=== PATIENT | female | born 1960 | race Caucasian/White ===

== ENCOUNTER 2019-10-14 09:16 | Outpatient (CLI) | payer OTHER, SELFPAY ==
--- NOTE | 2019-10-14 10:02 | ECG_ITS ---
Measurements Intervals [place] Rate: 62 P: 70 WY: 179 QRS: 77 QRSD: 92 T: 64 QT: 404 QTc: 413 Interpretive Statements SINUS RHYTHM BASELINE ARTIFACT- II, III, AVL, AVF NORMAL ECG Electronically Signed On 10-14-2019 10:38:04 CDT by Sumit Hurley D.O.
[2019-10-14 10:37] LABS: INR 0.9; Partial Thromboplastin Time 28.6 SECONDS (22.3-36.8); Prothrombin Time 11.7 Seconds (11.1-14.7)
[2019-10-14 10:41] LABS: Alanine Aminotransferase 14 U/L (4-35); Albumin Level 4.1 g/dL (3.5-5.1); Alkaline Phosphatase 95 U/L (38-126); Anion Gap 11.2 mmol/L (7-16); Aspartate Amino Transferase 24 U/L (14-36); Bilirubin,Total 0.2 mg/dL (0.2-1.3); Blood Urea Nitrogen 9 mg/dL (7-17); Calcium 8.9 mg/dL (8.4-10.2); Carbon Dioxide 29 mmol/L (22-30); Chloride 103 mmol/L (98-107); Estimated Glomerular Filt Rate > 60; Glucose 99 mg/dL (65-105); Potassium 4.2 mmol/L (3.4-5.0); Sodium 139 mmol/L (137-145)
[2019-10-14 11:05] LABS: Basophils Absolute Auto 0.1 K/mm3 (0.0-0.1); Basophils Percent Auto 1.2 % (0.2-1.2); Eosinophils Absolute Auto 0.4 K/mm3 (0-0.3); Eosinophils Percent Auto 5.8 % (0-4.4); Hematocrit 39.8 % (37.0-47.0); Immature Granulocyte Absolute 0.02 K/mm3 (0.00-0.031); Immature Granulocyte Percent A 0.3 % (0-0.5); Mean Corpuscular HGB Conc 32.7 g/dl (32-36); Mean Corpuscular Hemoglobin 30.8 pg (26-34); Mean Corpuscular Volume 94.3 fl (80-100); Mean Platelet Volume 9.6 fl (7.4-10.4); Monocytes Absolute Auto 0.6 K/mm3 (0.1-0.6); Monocytes Percent Auto 7.5 % (2.6-8.5); Neutrophils Absolute Auto 3.6 K/mm3 (1.3-6.7); Neutrophils Percent Auto 48.2 % (45.5-73.1); Platelet Count Result 317 k/mm3 (150-375); Red Blood Count 4.22 M/mm3 (4.2-5.4); Red Cell Distribution Width 13.6 % (11.5-14.5); White Blood Count 7.6 K/mm3 (4.5-10.0)
== END 2019-10-14 09:17 | disposition home or self-care (01) ==
LOC: ANHSURGERY 09:20
PROVIDERS: PCP Family Medicine Sports Medicine; Visit Provider Urology
DX: N81.9 Female genital prolapse, unspecified (principal); E78.00 Pure hypercholesterolemia, unspecified
CPT/HCPCS: 36415; 80053; 85025; 85610; 85730; 86850; 86900; 86901; 87086; 87088; 93005

== ENCOUNTER 2019-10-21 00:21 | Outpatient (CLI) | payer OTHER, SELFPAY ==
[2019-10-21 20:43] LABS: SARS-CoV-2 RNA PCR Negative
== END 2019-10-21 00:22 | disposition home or self-care (01) ==
LOC: ANHCOVIDDT 00:21
PROVIDERS: PCP Family Medicine Sports Medicine; Visit Provider Urology
DX: Z01.818 Encounter for other preprocedural examination (principal); Z11.59 Encounter for screening for other viral diseases
CPT/HCPCS: 87635; C9803; U0003

== ENCOUNTER 2019-10-24 00:58 | Day surgery (SDC) | payer OTHER, SELFPAY ==
[2019-10-14 09:38] VITALS: BP 116/66; PULSE 68; RESP 20; TEMP 36.9; O2SAT 96; BMI 30.2
[2019-10-24] VITALS (12 sets, daily range): BP systolic 98–139; BP diastolic 47–81; PULSE 59–100; RESP 12–20; TEMP 36.1–37; O2SAT 94–100
--- NOTE | 2019-10-24 07:29 | WPDHPUPDATE1 ---
History and Physical Update Update Date/Time: 10/24/19 07:29 History and Physical has been reviewed, including an updated exam of the patient. There are NO changes in the patient's condition. Risks, benefits, and alternatives have been discussed and questions answered. Patient agrees to proceed with procedure.
[2019-10-24] MEDS: LACTATED RINGERS 1,000 ML 30 ML IV CONT ×2 (08:55→13:06)
--- NOTE | 2019-10-24 09:41 | WPDANESEPPF ---
Anes - Initial Pre Proc Eval Procedure: Operation Date: 10/24/19 10:00 Proposed Procedures p Robotic Sacrocolpopexy - Gurpreet Masterson MD Date/Time: 10/24/19 09:41 Surgeon: Gurpreet Masterson MD Pre Op Diagnosis: Vaginal Vault Prolapse Patient Data Age: 59 Gender: F Height: 5 ft 5 in Weight: 82.5 kg Last Vital Signs Temp 36.9 C 10/14/19 09:38 Pulse 68 10/14/19 09:38 Resp 20 10/14/19 09:38 BP 116/66 10/14/19 09:38 Pulse Ox 96 10/14/19 09:38 Allergies Allergy/AdvReac Type Severity Reaction Status Date / Time morphine Allergy Unknown ITCHING Verified 10/14/19 09:30 Home Medications Medication Instructions Recorded Confirmed Type atorvastatin 10 mg PO DAILY 10/14/19 10/24/19 History calcium carbonate [Calcium 600] 600 mg PO TID 10/14/19 10/24/19 History cholecalciferol (vitamin D3) 50 mcg PO DAILY 10/14/19 10/24/19 History levothyroxine 137 mcg PO DAILY 10/14/19 10/24/19 History magnesium 250 mg PO DAILY 10/14/19 10/24/19 History oxybutynin chloride 10 mg PO BID 10/14/19 10/24/19 History turmeric root extract 500 mg PO DAILY 10/14/19 10/24/19 History venlafaxine 150 mg PO DAILY 10/14/19 10/24/19 History Patient hx anesthesia problems: none Family hx anesthesia problems: none PMFSH Past Medical History Medical History (Updated 10/24/19 @ 09:41 by James Jeffries MD) Hyperlipidemia Hypothyroidism Obesity Surgical History Surgical History (Updated 10/24/19 @ 09:41 by James Jeffries MD) H/O: hysterectomy Social History Social History Smoking status: Current every day smoker Tobacco type: cigarettes Second hand tobacco smoke exposure: Yes Additional smoking assessment comments: 1PK/DAY/40+YRS Alcohol intake: current Substance use: never Living arrangements: with family Spiritual care concerns: No Anes - Eval Final PreProcedure Day of Procedure 10/24/19 09:41 Patient weight: obese Heart: regular rate and rhythm Lungs: clear to auscultation Airway: Mallampati scale class II Neurological: alert and oriented Last oral intake: >/= 8 hours ASA classification: III Emergent: no Anesthetic plan: proceed Anesthesia type and monitoring: general ETT and standard monitoring Informed Consent: The patient's anesthetic plan and its attendant risks and benefits were discussed with the patient/family/POA. Questions were solicited and answers provided to the satisfaction of the patient/family/POA.
[2019-10-24] MEDS: ceFAZolin 2 GM/D5W 50 ML 2 GM/50 ML BAG IVPB (10:37)
[2019-10-24] MEDS: BUPIVACAINE/EPINEPHRINE 0.25% 50 ML VIAL 20 ML INFILTRATE (11:10)
--- NOTE | 2019-10-24 13:07 | PM.PROC ---
Procedure Note - Detailed Date of procedure: 10/24/19 Pre-op diagnosis: Vaginal Vault Prolapse Post hysterectomy vaginal vault prolapse Stress urinary incontinence Post-op diagnosis: same Procedure performed: Robotic assisted laparoscopic sacral colpopexy [place] urethral sling Description of procedure: She understands the risks of bleeding, infection, recurrence of prolapse, diskitis, postoperative voiding dysfunction including incontinence and retention, dyspareunia, persistent or recurrent stress incontinence, vaginal mesh extrusion, urinary tract mesh erosion, bowel injury or obstruction, damage to surrounding organs, medical related complications. Agrees to proceed She was correctly identified and informed consent was obtained. She is brought to the operating room. She was given general anesthesia. She was placed in the low lithotomy position. All pressure points were padded. She was given appropriate perioperative antibiotics. A time-out was performed. I anesthetized the skin 3 fingerbreadths cephalad to the umbilicus. I incised the skin. I located the fascia. I entered the fascia sharply. I placed Vicryl sutures for later fascial closure. I placed a midline trocar. Under direct vision 2 additional trocars were placed in the right and left upper quadrant. She was placed in steep Trendelenburg. The robot was docked. I then sat at the console. With the Sizer in the vagina I created a plane on the anterior and posterior vaginal wall. I took great care not to injure the vagina bladder or rectum. she had permanent suture vaginal cuff which was resected and removed. Fifth of I introduced the mesh into the abdomen. I sewed the anterior leaflet of mesh on the anterior vaginal wall and posterior leaflet of mesh on the posterior vaginal wall with several sutures with 2 Goritex taking great care not to go through and through. I then reflected the colon laterally. I opened up the peritoneum over the sacral promontory. I carried this incision into the cul-de-sac. I located the ureter and kept lateral. I freed up the edges of the peritoneum. I located the anterior longitudinal ligament of the sacrum. I then tensioned my mesh appropriately. I did a vaginal exam to ensure prolapse reduction without undue tension. I then sewed the proximal leaflet of mesh onto the ligament with 3 sutures of 2 0 Chester-Javier. I used a 2 0 Monocryl to completely and meticulously retroperitonealized all mesh. I allowed the colon to go back into its normal anatomic location no sign of any impingement or stricturing. The abdomen was exited. Fascial sutures were closed. Skin was closed. Glue was applied. She was repositioned and prepped for urethral sling. I marked out the thigh incisions. I anesthetized the skin and made those incisions. I anesthetized the anterior vaginal wall over the mid urethra. I made a 1 cm incision. I dissected out laterally taking great care not to injure the urethra or the vaginal wall. I passed the helical trocars. First on the left and then on the right. This was done from the thigh incision towards the vaginal incision. The sling was connected to the trocars and brought out through the thigh incision. I tensioned the sling appropriately. I cut and removed the plastic sheaths. I then closed the incision with 2 0 Vicryl. Cystoscopy showed no surgical artifact in the bladder. No surgical artifact in the urethra. Ureteral orifices were seen to excrete clear yellow urine. The Harper catheter was replaced. She was awakened and transferred to the PACU in stable condition. Implants: Y mesh Anesthesia: GETA Surgeon: Gurpreet Masterson MD Drains: Yes (Harper catheter) Packing: No Pathology: none sent Complications: No immediate complications Condition: stable Disposition: PACU
--- NOTE | 2019-10-24 14:36 | PC.NURSE ---
This patient, Jerri Tracey, was received from PACU on 10/24/19 at 1427. Patient/family oriented to unit policies and routines
[2019-10-24] MEDS: LACTATED RINGERS 1,000 ML 125 ML (14:42)
[2019-10-24] MEDS: IBUPROFEN IV 400 MG in SODIUM CHLORIDE 0.9% IV 100 ML 200 MG IVPB (17:45)
[2019-10-24] MEDS: CEPHALEXIN 500 MG CAPSULE PO (21:53)
[2019-10-25] VITALS: BP 117/58; PULSE 84; RESP 20; TEMP 37.2; O2SAT 97
[2019-10-25 05:05] VITALS: BP 105/62; PULSE 65; RESP 18; TEMP 36.7; O2SAT 97
[2019-10-25] MEDS: DOCUSATE SODIUM 100 MG CAPSULE PO (07:24)
[2019-10-25] MEDS: ATORVASTATIN 10 MG TABLET PO (07:24)
[2019-10-25] MEDS: ENOXAPARIN 30 MG/0.3 ML SYRINGE SUB-Q (07:25)
[2019-10-25] MEDS: VENLAFAXINE HCL XR 75 MG CAP.ER.24H 150 MG PO (07:25)
[2019-10-25] MEDS: LEVOTHYROXINE SODIUM 25 MCG TABLET PO (07:25)
[2019-10-25] MEDS: LEVOTHYROXINE SODIUM 112 MCG TABLET PO (07:25)
--- NOTE | 2019-10-25 07:41 | WPDANESPN ---
Anes - Prog Note Post-Op Date/Time: 10/25/19 07:41 Cardiovascular status: normal Respiratory status: normal Airway patency: baseline Mental status: baseline Post-Op hydration status: normal Vital Signs: Last Vital Signs Temp 36.7 C 10/25/19 05:05 Pulse 65 10/25/19 05:05 Resp 18 10/25/19 05:05 BP 105/62 10/25/19 05:05 Pulse Ox 97 10/25/19 05:05 I/O: Intake & Output 10/24/19 10/24/19 10/25/19 15:59 23:59 07:59 Intake Total 650 1810 798 Output Total 85 300 1600 Balance 565 1510 -802 Post-procedural complaints: none Patient Feedback: Patient satisfied with anesthetic care.
[2019-10-25 08:00] VITALS: BP 107/80; PULSE 68; RESP 16; TEMP 37.2; O2SAT 97
--- NOTE | 2019-10-25 08:27 | WPDUROPN2 ---
Progress Note: A&P Assessment and Plan (1) Vaginal vault prolapse: Code(s): N81.9 - Female genital prolapse, unspecified Status: Acute Assessment and Plan: Ok to discharge home after next antibiotic dose. Subjective Subjective Date/Time Seen: 10/25/19 08:27 POD #1 Robotic Assisted Laparoscopic Sacral Colpopexy Review of Systems Cardiovascular: Cardiovascular: Denies chest pain Respiratory: Respiratory: Reports no additional respiratory complaints Gastrointestinal: Gastrointestinal: Denies nausea and Denies vomiting Genitourinary: Genitourinary: Denies hematuria, Denies dysuria and Denies pelvic pain Exam Resp: Effort & Inspection: normal respiratory effort Cardio: Rate: regular rate GI: GI Palp: Yes abdominal tenderness, Yes Soft to palpation and Yes Tenderness to palpation present (GI) (at incision sites only, all are well approximated, no drainage or edema ) Extrem: General: no edema Objective Data Vital Signs Vital Signs: Vital Signs - 24 hr 10/24/19 08:33 10/24/19 13:06 10/24/19 13:20 Temperature 97.4 F L 97 F L Pulse Rate 62 60 64 Respiratory Rate 20 17 16 Blood Pressure 113/60 127/62 139/69 Pulse Oximetry 97 100 100 10/24/19 13:35 10/24/19 13:50 10/24/19 14:05 Temperature 98.3 F 97.6 F Pulse Rate 77 60 59 L Respiratory Rate 12 16 14 Blood Pressure 98/81 L 106/66 113/58 L Pulse Oximetry 94 100 97 10/24/19 14:30 10/24/19 15:00 10/24/19 15:30 Temperature 97.9 F 98 F Pulse Rate 60 62 100 Respiratory Rate 16 16 20 Blood Pressure 108/47 L 120/58 L 111/65 Pulse Oximetry 98 100 10/24/19 16:00 10/24/19 17:00 10/24/19 19:30 Temperature 98.2 F 98.2 F 98.6 F Pulse Rate 68 78 71 Respiratory Rate 18 16 18 Blood Pressure 120/58 L 120/50 L 115/57 L Pulse Oximetry 96 10/25/19 00:00 10/25/19 05:05 Temperature 99.0 F 98.0 F Pulse Rate 84 65 Respiratory Rate 20 18 Blood Pressure 117/58 L 105/62 Pulse Oximetry 97 97 Intake/Output Intake/Output: Intake & Output 10/22/19 10/23/19 10/24/19 10/25/19 23:59 23:59 23:59 23:59 Intake Total 2460 798 Output Total 385 1700 Balance 2646 -949 Meds/Results Medications: Active Medications Generic Name Dose Route Start Last Admin Trade Name Freq PRN Reason Stop Dose Admin Acetaminophen 650 mg 10/24/19 14:20 Tylenol Tablet PO Q4H PRN Mild Pain (1-3) or Fever Hydrocodone Bitart/Acetaminophen 1 tab 10/24/19 14:20 10/25/19 02:59 [place] 5-325 Mg PO 1 tab Q4H PRN Administration Pain Rated 4-5 Atorvastatin Calcium 10 mg 10/24/19 14:30 10/25/19 07:24 Lipitor PO 10 mg DAILY LAURA Administration Cephalexin HCl 500 mg 10/24/19 17:00 10/24/19 21:53 Keflex Capsule PO 500 mg QID LAURA Administration Diphenhydramine HCl 25 mg 10/24/19 14:20 Benadryl Inj IV PUSH Q6H PRN Itching Docusate Sodium 100 mg 10/25/19 09:00 10/25/19 07:24 Colace Capsule PO 100 mg DAILY LAURA Administration Enoxaparin Sodium 30 mg 10/25/19 09:00 10/25/19 07:25 Lovenox SUB-Q 30 mg DAILY LAURA Administration Hydromorphone HCl 0.5 mg 10/24/19 14:20 Dilaudid Inj IV PUSH Q3H PRN Pain Rated 7-10 Cefazolin Sodium 1 gm in 50 mls @ 100 mls/hr 10/24/19 18:00 10/25/19 02:02 Ancef 1 Gm/D5w 50 Ml Pm IVPB 10/25/19 10:29 100 mls/hr Q8H LAURA Administration Ibuprofen 400 mg/ Sodium 104 mls @ 200 mls/hr 10/24/19 14:20 10/24/19 17:45 Chloride IVPB 200 mls/hr Q6H PRN Administration Pain Rated 5 or Less Ketorolac Tromethamine 15 mg 10/24/19 14:20 Toradol Inj IV PUSH 10/25/19 14:21 Q8H PRN Pain Rated 5 or Less Levothyroxine Sodium 25 mcg 10/25/19 06:30 10/25/19 07:25 Synthroid PO 25 mcg DAILY@0630 LAURA Administration Levothyroxine Sodium 112 mcg 10/25/19 06:30 10/25/19 07:25 Synthroid PO 112 mcg DAILY@0630 LAURA Administration Ondansetron HCl 4 mg 10/24/19 14:20 Zofran Inj IV PUSH
[2019-10-25] MEDS: CEPHALEXIN 500 MG CAPSULE PO (09:30)
== END 2019-10-25 10:40 | disposition home or self-care (01) ==
LOC: ANHSURGERY 13:03 → ANHOB2 14:22
PROVIDERS: PCP Family Medicine Sports Medicine; Visit Provider Urology
PROC: (CPT 57425; principal; 2019-10-24 10:00)
DX: N81.9 Female genital prolapse, unspecified (principal); N39.3 Stress incontinence (female) (male); Z18.89 Other specified retained foreign body fragments; E78.5 Hyperlipidemia, unspecified; E03.9 Hypothyroidism, unspecified; E66.9 Obesity, unspecified; Z68.30 Body mass index [BMI] 30.0-30.9, adult; F17.210 Nicotine dependence, cigarettes, uncomplicated
CPT/HCPCS: 57425; 57288; 88300; 99199; A9270; C1771; C1781; J0330; J0690; J1100; J1650; J1741; J2250; J2370; J2405; J2710; J3010; J7030; J7120

== ENCOUNTER 2020-02-06 14:09 | Outpatient (CLI) | payer OTHER, SELFPAY | END 2020-02-06 14:10 | disposition home or self-care (01) | LOC: ANHSURGERY 14:12 | PROVIDERS: PCP Family Medicine Sports Medicine; Visit Provider Urology | DX: T83.721A Exposure of implanted vaginal mesh into vagina, initial encounter (principal) | CPT/HCPCS: 87086 ==

== ENCOUNTER 2020-02-07 03:04 | Outpatient (CLI) | payer OTHER, SELFPAY ==
[2020-02-07 19:46] LABS: SARS-CoV-2 RNA PCR Negative
== END 2020-02-07 03:05 | disposition home or self-care (01) ==
LOC: ANHCOVIDDT 03:05
PROVIDERS: PCP Family Medicine Sports Medicine; Visit Provider Urology
DX: Z01.818 Encounter for other preprocedural examination (principal); Z20.828 Contact with and (suspected) exposure to other viral communicable diseases
CPT/HCPCS: 87635; C9803; U0003

== ENCOUNTER 2020-02-10 04:17 | Day surgery (SDC) | payer OTHER, SELFPAY ==
--- NOTE | 2020-02-05 13:29 | PM.IMHP ---
H&P: HPI History of Present Illness Date/Time: 02/05/20 13:29 Chief complaint: Exposure of Implanted Vaginal Mesh Narrative: Jerri Tracey is a 59 year old female with small area of tender vaginal mesh exposure Review of Systems Review of Systems: All systems reviewed & are unremarkable except as noted in HPI and below PMFSH Past Medical History Medical History (Updated 02/05/20 @ 13:31 by Gurpreet Masterson MD) Hyperlipidemia Hypothyroidism Obesity Surgical History Surgical History (Updated 10/24/19 @ 09:41 by James Jeffries MD) H/O: hysterectomy Social History Social History Smoking status: Current every day smoker Tobacco type: cigarettes Second hand tobacco smoke exposure: Yes Additional smoking assessment comments: 1PK/DAY/40+YRS Alcohol intake: current Substance use: never Spiritual care concerns: No Meds Home Medications and Allergies Home Medications Medication Instructions Recorded Confirmed Type atorvastatin 10 mg PO DAILY 10/14/19 10/24/19 History calcium carbonate [Calcium 600] 600 mg PO TID 10/14/19 10/24/19 History cholecalciferol (vitamin D3) 50 mcg PO DAILY 10/14/19 10/24/19 History levothyroxine 137 mcg PO DAILY 10/14/19 10/24/19 History magnesium 250 mg PO DAILY 10/14/19 10/24/19 History oxybutynin chloride 10 mg PO BID 10/14/19 10/24/19 History turmeric root extract 500 mg PO DAILY 10/14/19 10/24/19 History venlafaxine 150 mg PO DAILY 10/14/19 10/24/19 History docusate sodium [Colace] 100 mg PO BID #60 cap 10/24/19 Rx tramadol 50 mg PO Q6H PRN #20 tablet 10/24/19 Rx Allergies Allergy/AdvReac Type Severity Reaction Status Date / Time morphine Allergy Unknown ITCHING Verified 10/14/19 09:30 Exam Const: General: cooperative and healthy appearing HENMT: Head: normal to inspection Eyes: General: appearance normal, both eyes and all related structures Chest: Chest palpation & inspection: normal inspection of the chest GI: Inspection: normal to inspection : Other: small area of vaginal mesh exposure Back/Spine/Pelvis: Back: no CVA tenderness Skin: General skin exam: normal color Neuro: General: oriented to person Assessment and Plan Assessment and plan (1) Exposure of vaginal mesh through vaginal wall: Qualifiers: Encounter type: sequela Qualified Code(s): T83.721S - Exposure of implanted vaginal mesh into vagina, sequela Code(s): T83.721A - Exposure of implanted vaginal mesh into vagina, initial encounter Status: Acute Assessment and Plan: escision of mesh exposure. risks of recurrent FRANCIA discussed
[2020-02-06 09:53] VITALS: BMI 29.5
--- NOTE | 2020-02-09 08:55 | WPDANESEPPF ---
Anes - Initial Pre Proc Eval Procedure: Operation Date: 02/10/20 08:30 Proposed Procedures p Excision Of Exposed Vaginal Mesh - Gurpreet Masterson MD Date/Time: 02/09/20 08:55 Surgeon: Gurpreet Masterson MD Pre Op Diagnosis: Exposure of Implanted Vaginal Mesh Patient Data Age: 59 Gender: F Height: 1.65 m Weight: 80.3 kg Allergies Allergy/AdvReac Type Severity Reaction Status Date / Time morphine Allergy Unknown ITCHING Verified 02/10/20 06:54 Home Medications Medication Instructions Recorded Confirmed Type atorvastatin 10 mg PO DAILY 10/14/19 02/10/20 History calcium carbonate [Calcium 600] 600 mg PO DAILY 10/14/19 02/10/20 History cholecalciferol (vitamin D3) 50 mcg PO DAILY 10/14/19 02/10/20 History levothyroxine 137 mcg PO DAILY 10/14/19 02/10/20 History magnesium 250 mg PO DAILY 10/14/19 02/10/20 History oxybutynin chloride 10 mg PO BID 10/14/19 02/10/20 History turmeric root extract 500 mg PO DAILY 10/14/19 02/10/20 History venlafaxine 150 mg PO DAILY 10/14/19 02/10/20 History docusate sodium [Colace] 100 mg PO PRN PRN 02/06/20 02/06/20 History Patient hx anesthesia problems: none Family hx anesthesia problems: none PMFSH Past Medical History Medical History (Updated 02/09/20 @ 08:56 by Prasad Thurman DO) Hydrocephalus waqas holes x 2 Hyperlipidemia Hypothyroidism Obesity Osteoarthritis Surgical History Surgical History (Updated 10/24/19 @ 09:41 by James Jeffries MD) H/O: hysterectomy Social History Social History Smoking packs per day: 1 Smoking cigarettes per day: 20.0 Years smoked: 40 Smoking pack-years: 40.00 Smoking status: Current every day smoker Tobacco type: cigarettes Second hand tobacco smoke exposure: Yes Additional smoking assessment comments: 1PK/DAY/40+YRS Alcohol intake: current Substance use: never Living arrangements: with family Spiritual care concerns: No Anes - Eval Final PreProcedure Day of Procedure 02/09/20 08:55 Patient weight: overweight Heart: regular rate and rhythm Lungs: clear to auscultation and normal air movement Airway: Mallampati scale class II Neurological: alert and oriented Last oral intake: >/= 8 hours ASA classification: III Emergent: no Anesthetic plan: proceed Anesthesia type and monitoring: general LMA and standard monitoring Informed Consent: The patient's anesthetic plan and its attendant risks and benefits were discussed with the patient/family/POA. Questions were solicited and answers provided to the satisfaction of the patient/family/POA.
[2020-02-10] VITALS (7 sets, daily range): BP systolic 99–157; BP diastolic 49–87; PULSE 58–93; RESP 14–20; TEMP 36–36.8; O2SAT 96–100
--- NOTE | 2020-02-10 07:14 | WPDHPUPDATE1 ---
History and Physical Update Update Date/Time: 02/10/20 07:14 History and Physical has been reviewed, including an updated exam of the patient. There are NO changes in the patient's condition. Risks, benefits, and alternatives have been discussed and questions answered. Patient agrees to proceed with procedure.
[2020-02-10] MEDS: LACTATED RINGERS 1,000 ML 30 ML IV CONT (07:41)
--- NOTE | 2020-02-10 08:48 | SUR.PREOP ---
Offered trip to bathroom. Patient declined.
[2020-02-10] MEDS: ceFAZolin 2 GM/D5W 50 ML 2 GM/50 ML BAG IVPB (08:56)
[2020-02-10] MEDS: KETOROLAC 30 MG/ML VIAL (*BKC) IV PUSH (09:23)
--- NOTE | 2020-02-10 09:32 | PM.PROC ---
Procedure Note - Detailed Date of procedure: 02/10/20 Pre-op diagnosis: Exposure of Implanted Vaginal Mesh Post-op diagnosis: same Procedure performed: Excision of exposed vaginal mesh Cystoscopy Description of procedure: She understood the risks of bleeding, infection, recurrence exposure, and lead removed the present exposure. Recurrence stress incontinence. She agrees to proceed. She was correctly identified and informed consent obtained. She by the operating room. She was given general anesthesia. She was prepped and draped in sterile fashion. Time-out performed. I placed Harper catheter. Place lungs start retractor. Examination of the mid urethra revealed a mesh exposure the midline. I got a mosquito clamp behind the mesh exposure. I transected it. I then dissected out laterally removing the entire area mesh. About a 1 1/2 to 2 cm section. There is no other mesh exposure of the area. I did a interrupted Vicryl stitch to close incision. On cystoscopy she had no tumors, stones, trabeculations, abnormal red patches, foreign bodies. Ureteral orifices were normal. She is awakened and transferred to the PACU in stable condition. Implants: None Anesthesia: GLMA Surgeon: Gurpreet Masterson MD Estimated blood loss (mL): 5 Drains: No Packing: No Pathology: yes (Exposed vaginal mesh) Complications: No immediate complications Condition: stable Disposition: PACU
--- NOTE | 2020-02-10 09:39 | SUR.PHASEI ---
PT C/O URGE TO VOID. OFFERED BEDPAN. PT REFUSED.
--- NOTE | 2020-02-10 10:04 | SUR.PHASEI ---
PT AWAKE AND ALERT. DENIES PAIN. ASKING TO GO HOME.
== END 2020-02-10 10:54 | disposition home or self-care (01) ==
PROVIDERS: PCP Family Medicine Sports Medicine; Visit Provider Urology
PROC: (CPT 57295; principal; 2020-02-10 08:30)
DX: T83.721A Exposure of implanted vaginal mesh into vagina, initial encounter (principal); Y83.8 Other surgical procedures as the cause of abnormal reaction of the patient, or of later complication, without mention of misadventure at the time of the procedure; E78.5 Hyperlipidemia, unspecified; E03.9 Hypothyroidism, unspecified; E66.9 Obesity, unspecified; Z68.29 Body mass index [BMI] 29.0-29.9, adult; F17.210 Nicotine dependence, cigarettes, uncomplicated
CPT/HCPCS: 57295; 88300; A9270; J0690; J1100; J1885; J2250; J2405; J2704; J3010; J7030; J7120

== ENCOUNTER 2023-01-23 05:27 | Day surgery (SDC) | payer OTHER, SELFPAY ==
[2023-01-15 14:15] VITALS: BMI 30.7
--- NOTE | 2023-01-23 09:00 | WPDANESEPPF ---
Anes - Initial Pre Proc Eval Procedure: Operation Date: 01/23/23 14:30 Proposed Procedures p Colonoscopy - Liu Tipton MD Date/Time: 01/23/23 09:00 Surgeon: Liu Tipton MD Pre Op Diagnosis: neoplasia screening Patient Data Age: 62 Gender: F Height: 1.65 m Weight: 83.91 kg Allergies Allergy/AdvReac Type Severity Reaction Status Date / Time morphine Allergy Unknown ITCHING Verified 01/23/23 13:35 Home Medications Medication Instructions Recorded Confirmed Type atorvastatin 10 mg tablet 10 mg PO DAILY 10/14/19 01/23/23 History calcium carbonate 600 mg calcium 600 mg PO DAILY 10/14/19 01/23/23 History (1,500 mg) tablet (Calcium) cholecalciferol (vitamin D3) 50 50 mcg PO DAILY 10/14/19 01/23/23 History mcg (2,000 unit) tablet levothyroxine 137 mcg tablet 137 mcg PO DAILY 10/14/19 01/23/23 History magnesium 250 mg tablet 250 mg PO DAILY 10/14/19 01/23/23 History oxybutynin chloride 10 mg 10 mg PO BID 10/14/19 01/23/23 History tablet,extended release 24 hr turmeric root extract 500 mg 500 mg PO DAILY 10/14/19 01/23/23 History capsule venlafaxine 150 mg 150 mg PO DAILY 10/14/19 01/23/23 History capsule,extended release 24 hr docusate sodium 100 mg capsule 100 mg PO PRN PRN Constipation 02/06/20 01/23/23 History (Colace) sodium,potassium,mag sulfates 17.5 See Rx Instructions PO .COMPLEX 01/08/23 01/23/23 Rx gram-3.13 gram-1.6 gram oral soln #354 mL (Suprep Bowel Prep Kit) Patient hx anesthesia problems: none Family hx anesthesia problems: none Results Review: All pre-operative results and documents have been reviewed as part of the pre-operative evaluation. [facility] Past Medical History Medical History (Updated 01/23/23 @ 14:22 by Liu Tipton MD) COPD (chronic obstructive pulmonary disease) Hydrocephalus waqas holes x 2 Hyperlipidemia Hypothyroidism Obesity Osteoarthritis Surgical History Surgical History (Updated 10/24/19 @ 09:41 by James Jeffries MD) H/O: hysterectomy Social History Social History Smoking packs per day: 1 Smoking cigarettes per day: 20.0 Years smoked: 40 Smoking pack-years: 40.00 Smoking status: Current every day smoker Tobacco type: cigarettes Second hand tobacco smoke exposure: Yes Additional smoking assessment comments: 1PK/DAY/40+YRS Alcohol intake: current Substance use: never Living arrangements: with family Spiritual care concerns: No Anes - Eval Final PreProcedure Day of Procedure 01/23/23 09:00 Patient weight: obese Heart: regular rate and rhythm Lungs: clear to auscultation Airway: Mallampati scale class II Neurological: alert and oriented Last oral intake: >/= 8 hours ASA classification: III Emergent: no Anesthetic plan: proceed Anesthesia type and monitoring: general GIVS and standard monitoring Results Review: All pre-operative results and documents have been reviewed as part of the pre-operative evaluation. Informed Consent: The patient's anesthetic plan and its attendant risks and benefits were discussed with the patient/family/POA. Questions were solicited and answers provided to the satisfaction of the patient/family/POA.
[2023-01-23 13:36] VITALS: BP 91/62; PULSE 64; RESP 18; TEMP 36.1; O2SAT 99; BMI 30.9
[2023-01-23] MEDS: LACTATED RINGERS 1,000 ML 150 ML IV CONT (13:45)
--- NOTE | 2023-01-23 14:15 | WPDANESEPPF ---
Anes - Initial Pre Proc Eval Procedure: Operation Date: 01/23/23 14:30 Proposed Procedures p Colonoscopy - Liu Tipton MD Date/Time: 01/23/23 14:15 Surgeon: Liu Tipton MD Pre Op Diagnosis: Hx colon polyp Patient Data Age: 62 Gender: F Height: 1.65 m Weight: 84.4 kg Last Vital Signs Temp 97.0 F L 01/23/23 13:36 Pulse 64 01/23/23 13:36 Resp 18 01/23/23 13:36 BP 91/62 L 01/23/23 13:36 Pulse Ox 99 01/23/23 13:36 O2 Del Method Room Air 01/23/23 13:36 Allergies Allergy/AdvReac Type Severity Reaction Status Date / Time morphine Allergy Unknown ITCHING Verified 01/23/23 13:35 Home Medications Medication Instructions Recorded Confirmed Type atorvastatin 10 mg tablet 10 mg PO DAILY 10/14/19 01/23/23 History calcium carbonate 600 mg calcium 600 mg PO DAILY 10/14/19 01/23/23 History (1,500 mg) tablet (Calcium) cholecalciferol (vitamin D3) 50 50 mcg PO DAILY 10/14/19 01/23/23 History mcg (2,000 unit) tablet levothyroxine 137 mcg tablet 137 mcg PO DAILY 10/14/19 01/23/23 History magnesium 250 mg tablet 250 mg PO DAILY 10/14/19 01/23/23 History oxybutynin chloride 10 mg 10 mg PO BID 10/14/19 01/23/23 History tablet,extended release 24 hr turmeric root extract 500 mg 500 mg PO DAILY 10/14/19 01/23/23 History capsule venlafaxine 150 mg 150 mg PO DAILY 10/14/19 01/23/23 History capsule,extended release 24 hr docusate sodium 100 mg capsule 100 mg PO PRN PRN Constipation 02/06/20 01/23/23 History (Colace) sodium,potassium,mag sulfates 17.5 See Rx Instructions PO .COMPLEX 01/08/23 01/23/23 Rx gram-3.13 gram-1.6 gram oral soln #354 mL (Suprep Bowel Prep Kit) Patient hx anesthesia problems: none Family hx anesthesia problems: none Results Review: All pre-operative results and documents have been reviewed as part of the pre-operative evaluation. PMFSH Past Medical History Medical History (Updated 01/23/23 @ 09:00 by Prasad Thurman DO) COPD (chronic obstructive pulmonary disease) Hydrocephalus waqas holes x 2 Hyperlipidemia Hypothyroidism Obesity Osteoarthritis Surgical History Surgical History (Updated 10/24/19 @ 09:41 by James Jeffries MD) H/O: hysterectomy Social History Social History Smoking packs per day: 1 Smoking cigarettes per day: 20.0 Years smoked: 40 Smoking pack-years: 40.00 Smoking status: Current every day smoker Tobacco type: cigarettes Second hand tobacco smoke exposure: Yes Additional smoking assessment comments: 1PK/DAY/40+YRS Alcohol intake: current Substance use: never Living arrangements: with family Spiritual care concerns: No Anes - Eval Final PreProcedure Day of Procedure 01/23/23 14:15 Patient weight: obese Heart: regular rate and rhythm Lungs: clear to auscultation Airway: Mallampati scale class II Neurological: alert and oriented Last oral intake: >/= 8 hours ASA classification: III Emergent: no Anesthetic plan: proceed Anesthesia type and monitoring: general GIVS and standard monitoring Results Review: All pre-operative results and documents have been reviewed as part of the pre-operative evaluation. Informed Consent: The patient's anesthetic plan and its attendant risks and benefits were discussed with the patient/family/POA. Questions were solicited and answers provided to the satisfaction of the patient/family/POA.
--- NOTE | 2023-01-23 14:20 | PM.HPGS ---
History of Present Illness History of Present Illness Consent: Risks, benefits, and alternatives have been discussed and questions answered. Patient agrees to proceed with procedure. Chief complaint: neoplasia screening Narrative: Jerri Tracey is a 62 year old female presents for screening colonoscopy. Patient has current weight appetite bowel movements are normal. Patient denies abdominal pain. She has had no bleeding. Family history noncontributory. Patient has a history of benign hyperplastic colon polyp removed by Dr. Liu Long in 2010. Review of Systems Review of Systems: review of systems noncontributory. [facility] Past Medical History Medical History (Updated 01/23/23 @ 14:22 by Liu Tipton MD) COPD (chronic obstructive pulmonary disease) Hydrocephalus waqas holes x 2 Hyperlipidemia Hypothyroidism Obesity Osteoarthritis Surgical History Surgical History (Updated 10/24/19 @ 09:41 by James Jeffries MD) H/O: hysterectomy Social History Social History Smoking packs per day: 1 Smoking cigarettes per day: 20.0 Years smoked: 40 Smoking pack-years: 40.00 Smoking status: Current every day smoker Tobacco type: cigarettes Second hand tobacco smoke exposure: Yes Additional smoking assessment comments: 1PK/DAY/40+YRS Alcohol intake: current Substance use: never Living arrangements: with family Spiritual care concerns: No Meds Home Medications and Allergies Home Medications Medication Instructions Recorded Confirmed Type atorvastatin 10 mg tablet 10 mg PO DAILY 10/14/19 01/23/23 History calcium carbonate 600 mg calcium 600 mg PO DAILY 10/14/19 01/23/23 History (1,500 mg) tablet (Calcium) cholecalciferol (vitamin D3) 50 50 mcg PO DAILY 10/14/19 01/23/23 History mcg (2,000 unit) tablet levothyroxine 137 mcg tablet 137 mcg PO DAILY 10/14/19 01/23/23 History magnesium 250 mg tablet 250 mg PO DAILY 10/14/19 01/23/23 History oxybutynin chloride 10 mg 10 mg PO BID 10/14/19 01/23/23 History tablet,extended release 24 hr turmeric root extract 500 mg 500 mg PO DAILY 10/14/19 01/23/23 History capsule venlafaxine 150 mg 150 mg PO DAILY 10/14/19 01/23/23 History capsule,extended release 24 hr docusate sodium 100 mg capsule 100 mg PO PRN PRN Constipation 02/06/20 01/23/23 History (Colace) sodium,potassium,mag sulfates 17.5 See Rx Instructions PO .COMPLEX 01/08/23 01/23/23 Rx gram-3.13 gram-1.6 gram oral soln #354 mL (Suprep Bowel Prep Kit) Allergies Allergy/AdvReac Type Severity Reaction Status Date / Time morphine Allergy Unknown ITCHING Verified 01/23/23 13:35 Vital Signs Vital Signs - 24 hr 01/23/23 13:36 Temperature 97.0 F L Pulse Rate 64 Respiratory Rate 18 Blood Pressure 91/62 L Pulse Oximetry 99 Oxygen Delivery Room Air Exam Narrative: Physical exam reveals patient to be alert. Vital signs stable. HEENT exam is unremarkable. Patient is anicteric. Lungs are clear to auscultation and percussion. Heart is without murmur or extra sounds. Abdomen bowel sounds are present soft nontender with no organomegaly. Digital external rectal exam is normal. Assessment and Plan Assessment and plan (1) Encounter for screening colonoscopy: Code(s): Z12.11 - Encounter for screening for malignant neoplasm of colon Status: Acute Assessment and Plan: Patient presents for screening colonoscopy. She appears to be at average risk for colon polyps. Further recommendations may be given after endoscopy.
[2023-01-23 15:20] VITALS: BP 104/56; PULSE 50; RESP 17; O2SAT 100
[2023-01-23 15:30] VITALS: BP 98/51; PULSE 60; RESP 24; O2SAT 99
[2023-01-23 15:40] VITALS: BP 118/48; PULSE 61; RESP 19; O2SAT 99
== END 2023-01-23 15:41 | disposition home or self-care (01) ==
PROVIDERS: PCP Internal Medicine; Visit Provider Internal Medicine Gastroenterology
PROC: 0DJD8ZZ Inspection of Lower Intestinal Tract, Via Natural or Artificial Opening Endoscopic (ICD-10-PCS; CPT 45378; principal; 2023-01-23 14:30)
DX: Z12.11 Encounter for screening for malignant neoplasm of colon (principal); K63.5 Polyp of colon; K64.8 Other hemorrhoids; J44.9 Chronic obstructive pulmonary disease, unspecified; E78.5 Hyperlipidemia, unspecified; E03.9 Hypothyroidism, unspecified; F17.210 Nicotine dependence, cigarettes, uncomplicated; E66.9 Obesity, unspecified; Z68.31 Body mass index [BMI] 31.0-31.9, adult
CPT/HCPCS: 45385; 88305; J7120

== ENCOUNTER → 2023-02-17 13:01 | Outpatient (CLI) | payer OTHER, SELFPAY ==
--- NOTE | ~2023-02-17 | MM_ITS ---
EXAMINATION: MM screening gulshan BI w shai HISTORY: Screening mammogram TECHNIQUE: Craniocaudal and mediolateral oblique 3-D tomosynthesis images were obtained and synthetic 2-D images were generated. CAD analysis was submitted and interpreted. COMPARISON: 03/09/2019 bilateral screening mammogram BREAST PARENCHYMAL COMPOSITION: There are scattered areas of fibroglandular density. FINDINGS: Scattered bilateral benign calcifications. There is no evidence of suspicious mass, calcifi cation, or architectural distortion to suggest malignancy in either breast. There has been no suspici ous interval change. IMPRESSION: 1. No mammographic evidence of malignancy. 2. Recommend routine screening mammography in one year. BI-RADS Category 2: Benign finding(s). Reviewed, dictated and finalized at location A. [employer]
--- NOTE | ~2023-02-17 | DEXA_ITS ---
Bone Density Report Name: GAVINO CAMARILLO Age: 62 Sex: Female Ethnicity: White Date of : 1960 Indication: osteopenia; hysterectomy; postmenopausal Referring Provider: MOLINA, NEO Velarde Study: Bone densitometry was performed. Exam Date: February 17, 2023 Accession number: [id number] Bone Density: Region BMD T-score Z-score Classification AP Spine (L1, L2, L3) 1.086 0.6 2.2 Normal Femoral Neck (Left) 0.749 -0.9 0.5 Normal Total Hip (Left) 0.830 -0.9 0.2 Normal Femoral Neck (Right) 0.702 -1.3 0.1 Osteopenia Total Hip (Right) 0.747 -1.6 -0.5 Osteopenia Total Hip Mean 0.789 -1.3 -0.2 Osteopenia World Health Organization criteria for BMD impression classify patients as: Normal (T-score at or above -1.0), Osteopenia (T-score between -1.0 and -2.5), or Osteoporosis (T-score at or below -2.5). 10-year Fracture Risk(1): Major Osteoporotic Fracture 7.9% Hip Fracture 1.1% Reported Risk Factors: [place] (), Neck BMD=0.702, BMI=31.7, smoking (1) FRAX(R) Version 3.08. Fracture probability calculated for an untreated patient. Fracture probability may be lower if the patient has received treatment. Previous Exams: Region Exam Age BMD T-score BMD Change BMD Change Date g/cm2 vs Baseline vs Previous AP Spine(L1, L2, L3) 02/17/2023 62 1.086 0.6 -0.057* -0.057* 03/09/2019 58 1.143 1.1 Total Hip(Left) 02/17/2023 62 0.830 -0.9 -0.057* -0.057* 03/09/2019 58 0.887 -0.5 Total Hip(Right) 02/17/2023 62 0.747 -1.6 -0.042* -0.042* 03/09/2019 58 0.789 -1.3 *Denotes significance at 95% confidence level, LSC for AP Spine = 0.022 g/cm2, LSC for Total Hip = 0.027 g/cm2 Clinical Information Provided by Patient: Smokes Has used the following medications: Vitamin D, Calcium, MTV Has the following medical conditions: Hysterectomy, COPD Patient maximum height was 66 Menopause Age: 35 No regular weight bearing exercise Does not regularly consume dairy products Drinks caffeinated beverages Onset of menses at age 15 Number of children 3 Impression: The patient has low bone mass, based on the Right Total Hip T-score. The patient has an estimated ten-year risk of hip fracture of 1.1% and an estimated ten-year risk of major fracture of 7.9%, based on the WHO FRAX algorithm. The patient has risk factors, including: smoking. The BMD for the AP Spine(L1, L2, L3) decreased, changing by -0.057 since t
== END ==
PROVIDERS: PCP Nurse Practitioner; Visit Provider Nurse Practitioner
DX: Z12.31 Encounter for screening mammogram for malignant neoplasm of breast (principal); Z13.820 Encounter for screening for osteoporosis; M85.851 Other specified disorders of bone density and structure, right thigh
CPT/HCPCS: 77063; 77067; 77080